=== PATIENT | female | born 1990 | race African-American/Black ===

== ENCOUNTER 2019-12-26 05:26 | Emergency (ER) | payer MEDICAID ==
[~2019-12-26] VITALS: Ht 172.7 cm; Wt 81.6 kg
[2019-12-26 05:32] VITALS: Ht 172.7 cm; Wt 81.6 kg
[2019-12-26 07:05] LABS: BASOPHIL % 0.4 % (0-2); PLATELET COUNT 294 x10^3mcL (130-400); RED CELL DISTRIBUTION WIDTH 13.1 % (11.5-14.5)
[2019-12-26 07:07] LABS: CALCIUM 9.6 mg/dL (8.5-10.1); CARBON DIOXIDE 22.9 mmol/L (21-32); CHLORIDE SERUM 107 mmol/L (98-107); CREATININE SERUM 0.8 mg/dL (0.6-1.0); GFR1 > 60 mL/min; GLUCOSE SERUM 178 mg/dL (74-106); POTASSIUM SERUM 3.2 mmol/L (3.5-5.1); SODIUM SERUM 142 mmol/L (136-145)
[2019-12-26 07:12] LABS: ALKALINE PHOSPHATASE 49 U/L (46-116); ALT/SGPT 29 U/L (14-59); AST/SGOT 20 U/L (15-37); BILIRUBIN TOTAL 0.46 mg/dL (0.20-1.00); LIPASE 56 IU/L (73-393); TOTAL PROTEIN, SERUM 7.7 g/dL (6.4-8.2)
[2019-12-26 07:18] LABS: UA SPECIFIC GRAVITY 1.025 (1.005-1.035); microscopic required? YES; urine erythrocyte 3+ (NEGATIVE)
[2019-12-26 07:48] LABS: AMPHETAMINE QUAL UR NONE DETECTED (See below)
[2019-12-26 09:51] VITALS: BP 111/54
== END 2019-12-26 09:51 | disposition home or self-care (01) ==
LOC: ED 05:26 → EDBD 05:26 → ED 09:51
PROVIDERS: Emergency Medicine
DX: F12.188 Cannabis abuse with other cannabis-induced disorder (principal); Z98.890 Other specified postprocedural states
CPT/HCPCS: J1630; J2060; J2270; J2405; J7030